=== PATIENT | female | born 1960 | race Caucasian/White ===

== ENCOUNTER 2020-03-26 11:38 | Emergency (ER) | payer OTHER, MEDICARE ==
[2020-03-26 15:26] LABS: HEMOGLOBIN 11.5 gm/dl (12.3-15.3); RED BLOOD COUNT 4.4 M/UL (4.00-5.10)
[2020-03-26 16:06] LABS: BUN/CREATININE RATIO 18 (0-10)
[2020-03-26] MEDS ORDERED: MACROBID 100 M100 MG PO (17:52)
== END 2020-03-26 18:03 | disposition home or self-care (01) ==
LOC: ER1 11:38
PROVIDERS: Physician Assistant
DX: U07.1 COVID-19 (principal); N39.0 Urinary tract infection, site not specified; J44.9 Chronic obstructive pulmonary disease, unspecified; I12.9 Hypertensive chronic kidney disease with stage 1 through stage 4 chronic kidney disease, or unspecified chronic kidney disease; E11.22 Type 2 diabetes mellitus with diabetic chronic kidney disease; N18.9 Chronic kidney disease, unspecified; Z88.8 Allergy status to other drugs, medicaments and biological substances; Z23 Encounter for immunization
CPT/HCPCS: 71045; 80053; 81001; 82550; 82553; 83874; 84484; 85025; 85379; 87077; 87086; 87186; 93005; 99285; M0239; Q9967

== ENCOUNTER → 2021-02-01 | Outpatient (CLI) | payer OTHER ==
[~2021-02-01] MED LIST: MACROBID 100 M100 MG PO
== END ==
LOC: HEART 5 01-25 08:45
DX: Z01.810 Encounter for preprocedural cardiovascular examination (principal)
CPT/HCPCS: 78452; A9502; J2785